=== PATIENT | male | born 1975 | race Caucasian/White ===

== ENCOUNTER → 2017-06-08 | Outpatient (CLI) | payer OTHER ==
--- NOTE | 2017-06-09 06:06 | PAP/PSG TECHNICIAN REPORT ---
[facility] Network Operations Technician Polysomnogram Report Study name: None Report date: 06/09/2017 Study date: 06/08/2017 Referring Physician: DR. Mary MEDINA Name: CINDY DA SILVA Interpreting Physician: Jarod Kern D.O. Date of : 1975 Network Operations Technician: Jocy Ventura RPS. Sex: Male Age: 41 Study Type: PSG Weight: 288 lbs Height: 41 years, Height 5' 9" BMI: 42.53 Medications: NONE REPORTED Patient History 41 yr-old male here for a baseline study. He has a history of excessive daytime sleepiness, snoring, and witnessed apneas. His [place] scale is 16. The test was started on room air. ETCO2 testing was not utilized during this study. Room 3 Parameters Monitored NPSG: E1-M2, E2-M1, Fp1-M2, Fp2-M1, F3-M2, F4-M2, F4-M1, C3-M2, C4-M2, C4-M1, O1-M2, O2-M2, O2-M1, T3-M2, T4-M1, P3-M2, P4-M1, CHIN1, CHIN2, HR, EKG, Legs, PFLOW, SNOR, FLOW, CFLOW, Tidal Volume, THOR, ABDO, SpO2, PLTH, CPRESS, ETCO2 Wave, ETCO2, pH Sleep Architecture Sleep Stages Time at Lights Off 10:02:54 PM STAGES Time (min.) TST (%) Time at Lights On 5:30:24 AM Wake 219.5 -- Total Recording Time (TRT) 447.50 min. N1 83.0 36 Total Sleep Period (TSP) 423.0 min. N2 127.5 56 Total Sleep Time (TST) 228.0min. N3 0.0 0 Awake Time 219.5 min. REM 17.5 8 Wake after Sleep Onset 208.5 min. Sleep Efficiency (SE) 51 % Sleep Onset Latency (FREDDY) 11.0 min. Number of Stage 1 Shifts None Awakenings 44 Stage Changes 191 Number of REM periods 1 REM 17.5 8 REM Latency 355.0 min. NREM 210.5 92 Body Position Analysis Supine Right Left Side Prone Vertical Total Sleep Time (min.) 229.6 157.4 0.0 157.37 0.0 0.0 Total Sleep Time (%) 31% 69% 0% 69 0% N/A% Total Sleep Time REM (min.) 0.0 17.5 0.0 None 0.0 0.0 Total Sleep Time NREM (min.) 70.6 139.9 0.0 None 0.0 0.0 Intermittent Wake (min.) 159.0 54.9 5.6 None 0.0 0.0 Total Sleep Period (%) 50% None None None None None Arousals Myoclonus (PLM) * Events Count Index Events Count Index Spontaneous 8 2 Events Awake (PLMW) 239 65.3 Respiratory 193 53.9 Events Asleep w/ Arousal (PLMA) 2 0.5 PLM 2 1 Events Asleep w/o Arousal (PLMS) 22 5.8 Snoring 8 2 Total Asleep 24 6.3 Total 211 56 Total 263 35 Respiratory Analysis * CA OA MA CH H RERA Total Count 55 39 257 0 11 0 362 Index 14.5 10.3 67.6 0 2.9 0 95.3 Mean Duration 15.9 18.5 29.9 0.00 15.4 0.0 26.1 Longest Duration 28.7 34.3 66.9 0.00 66.9 0.0 66.9 Respiratory Event Summary Total Supine ~Supine Right Left Prone REM NREM Apneas Count 351 111 240 240 N/A N/A 20 331 Index 92.4 94 92 91.5 N/A N/A 69 94 Hypopneas (4% Desat) Count 11 3 8 8 N/A N/A 1 10 Index 2.9 2.5 3 3.1 N/A N/A 3.4 2.9 Apneas & All Hypopneas Count 362 114 248 248 N/A N/A 21 341 Index 95.3 97 95 95 N/A N/A 72.0 97.2 Respiratory Events (Overlock Sleeve Setter+All Hyp+RERA) Count 362 114 248 248 N/A N/A 21 341 Index 95.3 97 95 94.6 N/A N/A 72.0 97.2 Respiratory Related Arousal Count 193 114 123 123 N/A N/A 16 189 Index 53.9 70 47 47 N/A N/A 55 54 Snoring Analysis Supine Right Left Prone REM NREM Total Snore duration 27.3 min Snores count 120 430 N/A N/A 34 516 550 Snore mean duration 3.0 Sec Snores index 102 164 N/A N/A 116.6 147.1 144.7 TST with snoring (%) 12.0% Desaturation Event Summary: Minimum %SpO2 Event Count Mean/Min/Max Duration(sec.) Desaturation Index % Time In Bed > 90 455 23.8 / 4.5 / 60.0 147.3 41.4 86 - 90 176 24.3 / 4.0 / 59.5 111.4 21.2 81 - 85 16 25.4 / 6.8 / 53.3 29.5 7.3 76 - 80 9 27.8 / 5.3 / 53.3 14.6 8.3 71 - 75 4 18.8 / 7.8 / 29.5 5.6 9.6 66 - 70 2 6.5 / 6.0 / 7.0 3.4 7.9 61 - 65 4 8.8 / 6.0 / 11.3 21.6 2.5 56 - 60 2 10.1 / 7.3 / 13.0 33.8 0.8 51 - 55 1 7.3 / 7.3 / 7.3 16.6 0.8 < 50 0 N/A 0.0 0.2 Total REM NREM Awake <50% 0.9 min. 0.9 min. 0.0 min. 0.0 min. 51 - 60% 7.2 min. 6.5 min. 0.7 min. 0.0 min. 61 - 70% 46.6 min. 5.0 min. 38.1 min. 3.5 min. 71 - 80% 80.1 min. 2.9 min. 69.1 min. 8.2 min. 81 - 90% 127.4 min. 2.2 min. 64.1 min. 61.2 min. 91 - 100% 185.4 min. 0.2 min. 38.6 min. 146.6 min. Average 85 65 80 91 Minimum SpO2 47 47 53 61 Desaturation Event Index 74.0 75.4 102.9 46.7 # Desat. Events below 89% 456 22 354 80 Time(%) with Saturation below 89% 44.3 3.8 34.7 5.8 Time(min.) with Saturation below 89% 198.1 17.1 155.1 25.8 Time (mins) REM (mins) NREM (mins) % of TST SpO2 Below 90% 383 22 N361 79.3 SpO2 Below 88% 153 0 0 72 Heart Rate Analysis Min (bpm) Max (bpm) Average (bpm) Awake 73 108 94 NREM 72 106 88 REM 66 107 87 Overall 66 107 88 Supplemental O2 Values Minimum O2 level: None Value Start Time End Time Network Operations Technician Comments Mr. Da Silva slept in the right and supine positions. No cardiac arrhythmias were noted. Some PLMs noted. No bruxism noted. Snoring was noted and scored as a 3 on a scale of 1 through 5. (0=no snoring, 5=snoring loud enough to be heard through a closed door or down the fel[address] way). He did not wake up to use the restroom during the night. Mr. Da Silva stated that he slept poorly. The final report will be interpreted and signed by a sleep physician. The completed physician report will then be placed in the patient medical record. Therapy (cm H2O) 0 TIB (min.) 447.5 TST (min.) 228.0 Sleep Onset (min.) 11.0 REM Onset From Sleep (min.) 355.0 Sleep Efficiency % 51 Wakefulness (%) 49 Wakefulness (min.) 219.5 NREM 1 (%) 36 NREM 1 (min.) 83.0 NREM 2 (%) 56 NREM 2 (min.) 127.5 NREM 3 (%) 0 NREM 3 (min.) 0.0 REM (%) 8 REM (min.) 17.5 # Arousals 211 Arousal Index 56 # Snore 550 Snore Index 144.7 AHI 95.3 AHI Supine 97 AHI Non-Supine 95 NREM AHI 97.2 REM AHI 72.0 RDI 95.3 # Obstructive Apnea 39 # Central Apnea 55 # Mixed Apnea 257 # Hypopneas 11 RERAs 0 Total Respiratory Events 367 Time Below SpO2 89% (min.) 172.2 Mean NREM SpO2 (%) 80 Mean REM SpO2 (%) 65 Mean Sleep SpO2 (%) 79 Min NREM SpO2 (%) 53 Min REM SpO2 (%) 47 Position Supine (min.) 229.6 Position Non-supine (min.) 157.4 LM Index Sleep 6.3 LM Index NREM 6.8 LM Index REM 0.0 Mean Heart Rate (bpm) 88 Min Heart Rate (bpm) 66
--- NOTE | 2017-06-12 20:53 | Sleep Study ---
Sleep Study Report Date of Service: 06/08/2017 Sleep Study Report CLINICAL DATA: The patient is a 41-year-old male referred by Dr. Hector Gonzalez. He has snoring , observed apneas, and excessive daytime somnolence. His [place] Sleepiness Scale score is 16. His BMI is elevated at 42.53. This was an in-lab diagnostic polysomnography. SLEEP ARCHITECTURE: The total sleep period was 423 minutes. The total sleep time was 228 minutes. The sleep efficiency was severely reduced to 51 percent. Wake after sleep onset was 208.5 minutes. The sleep latency was 11 minutes. REM latency was prolonged to 355 minutes. There was only 1 REM period during the night. Sleep consisted of stage N1 36 percent, stage N2 56 percent, stage N3 0 percent , stage REM 8 percent. AROUSAL DATA: The patient had a total of 211 arousals including 8 spontaneous arousals, 193 respiratory arousals, 2 PLM arousals, and 8 snoring arousals. The arousal index was 56. PLM DATA: The patient had a total of 24 periodic limb movements of sleep for a PLM index of 6.3. There were 2 arousals for a PLM arousal index of 0.5. EKG: The underlying cardiac rhythm was normal sinus. The cardiac rates 66-107 beats per minute. The average heart rate was 88 beats per minute. No arrhythmias were noted. RESPIRATORY DATA: The patient had a total of 362 respiratory events including 55 central apneas, 39 obstructive apneas, 257 mixed apneas, and 11 hypopneas. Hypopneas were scored according to the 4 percent desaturation rule. The longest apnea was 66.9 seconds. The mean duration of the hypopneas was 15.4 seconds. The apnea- hypopnea index was severely elevated at 95.3 events per hour. This reflects severe obstructive sleep apnea. OXIMETRY DATA: The average saturation for the night was 85 percent. The minimum saturation was 47 percent. There was a total of 198.1 minutes with saturations less than 89 percent. METAL SPRAYER COMMENTS: The patient slept on the right and supine positions. No cardiac arrhythmias were noted. Some PLMS noted. No bruxism noted. Snoring was noted and scored as a 3 on a scale of 1 through 5. He did not awaken to use the restroom during the night. IMPRESSIONS: 1. Severe obstructive sleep apnea COMMENTS: The patient has very severe sleep apnea. This disrupted his sleep and resulted in frequent awakenings and arousals. A split study could not be done because he had very little sleep prior to 12:30 a.m.. His sleep apnea was associated with severe oxygen desaturations. Some of the events were profoundly prolonged to longer than 1 minute. There was a component of central sleep apnea noted as well. RECOMMENDATIONS: 1. It is advised that the patient be treated with nasal CPAP as soon as feasible. The options would be for a CPAP titration versus treatment with auto CPAP. 2. Weight loss is advised in light of the severe elevation of body mass index. 3. If possible the patient should avoid sleeping in the supine position. During this study he spent approximately 50 percent of the night while supine. Copies To 1: Jarod Kern DO; Hector Gonzalez M.D.
== END | disposition home or self-care (01) ==
LOC: C.NEUR 20:00
PROVIDERS: ATTEND Internal Medicine
DX: R06.81 Apnea, not elsewhere classified (principal); G47.33 Obstructive sleep apnea (adult) (pediatric)